=== PATIENT | female | born 1945 | race Caucasian/White ===

== ENCOUNTER 2017-10-21 07:02 | Day surgery (SDC) | payer MEDICARE ==
[2017-10-20 13:25] VITALS: BMI 30.7
[~2017-10-21 07:02] MED LIST: FLU VACC TS2017-18 (>65YR) 0.5 ML SYRINGE IM ONE
[2017-10-21 08:06] VITALS: BP 126/77; TEMP 98.2
--- NOTE | 2017-10-21 09:16 | RAD ---
LEFT HIP SERIES: Date: 10/21/17 INDICATION: Left hip pain. FINDINGS: There is a left hip prosthesis. Alignment is appropriate. No obvious hardware complication. Pelvic ph lebolith formation is seen. IMPRESSION: Postoperative left hip without evidence of hardware complication. POS: PEG
--- NOTE | 2017-10-21 09:19 | RAD ---
LUMBAR SPINE RADIOGRAPH SERIES 3 VIEWS LATERAL PROJECTIONS INCLUDING NEUTRAL AND FLEXION AND EXTENSION: CLINICAL HISTORY: Sacroiliitis, acute low back pain. FINDINGS: Neutral view of the lumbar spine reveals postoperative fusion spanning L3 through L5. No obvious ann dware complication on the provided lateral views. With flexion and extension positioning, there is n o obvious translational motion. Intradiskal space devices at L3-4 and L4-5 with osseous incorporatio n are present. There is a spinal stimulating device present, posteriorly. IMPRESSION: No obvious translational motion of the postoperative lumbar spine. No significant subluxation. POS: [facility]
--- NOTE | 2017-10-21 11:42 | RAD ---
LUMBAR SPINE MYELOGRAM INDICATION: Lumbar radiculopathy. PROCEDURE: After informed consent had been obtained, the patient was escorted to the interventional suite and pl aced on the procedural table. Progress Clerk imaging was performed. The patient was placed into a prone posi tion. Skin on the low back was then prepped and draped in the standard sterile fashion and topical a nd regional soft tissue anesthesia was achieved with 1% lidocaine and sodium bicarbonate. Right int erlaminar L5-S1 approach was selected, and a 22 gauge needle was uneventfully advanced into the theca l sac with clear color CSF. Subsequently, 10 cc Isovue was instilled into the thecal sac under real time fluoroscopy. Appropriate opacification of thecal sac demonstrated with imaging stored for [employer]. The needle was then removed from the patient. The patient tolerated the procedure well and was then transferred to CT to undergo subsequent myelogram. Reference separate report for full deta ils. EXPOSURE DATA: 0.1 minute intermittent fluoroscopy; 28 mGy*^m2. IMPRESSION: Technically successful lumbar myelogram as detailed above. POS: [facility]
[2017-10-21] MEDS ORDERED: Iopamidol-M 200 41% 20 ML VIAL ONE (17:14)
--- NOTE | 2017-10-22 07:22 | CT ---
LUMBAR SPINE CT WITH CONTRAST CT LUMBAR SPINE MYELOGRAM: CLINICAL HISTORY: Sacroiliitis, acute low back pain. FINDINGS: There is postoperative effusion spanning L3 through with bilateral pedicle screws at each level with bilateral vertical interconnecting rods. There is no evidence of hardware complication. Intradiskal space devices are present at L3-4 and L4-5 with associated osseous incorporation traversing portions of the makah disk spaces. No vertebral body height loss. There is slight retrolisthesis at L2 on 3. Interosseous hemangioma formation is seen at L1. There is a spinal stimulator device present fro m a posterior approach, partially visualized. Incidental note of a hyperdensity of the posterior aspect of the left kidney incompletely evaluated. There is mild vascular calcification. L5-S1: Broad-based disk bulge is present. There is no high-grade central canal stenosis. Mild narr owing of the right and minimal narrowing of the right and minimal narrowing of the left neural forame n. There is evidence of prior posterior decompression. L4-5: Left hemilaminectomy is present. There is no high-grade compromise of the central canal or ne ural foramina. L3-4: Evidence of prior posterior decompression. No significant compromise of the central canal or left neural foramen. There is mild narrowing of the right neural foramen of a disk-osteophyte. L2-3: Mild central canal stenosis due to disk-osteophyte complex. There is mild to moderate right a nd minimal left neural foraminal narrowing. L1-2: Mild effacement of the ventral thecal sac by disk-osteophyte complex. There is mild right for aminal narrowing with effacement of the anterior perineural fat by lateralized disk-osteophyte. Conus medullaris terminates at the L1 level. IMPRESSION: 1. Postoperative fusion spanning L3 through L5 without obvious hardware complication. Multiple post erior decompression of this region also present with a relatively patent postoperative thecal sac. 2. Degenerative changes, most pronounced at the level just cephalad to the site of multilevel fusion (L2-3), where broad-based disk-osteophyte complex as well as mild degree of retrolisthesis result in mild narrowing of the central canal. POS: [facility]
== END 2017-10-21 10:25 | disposition home or self-care (01) ==
LOC: RAD 07:02
PROVIDERS: ATTEND Neurological Surgery
DX: M54.16 Radiculopathy, lumbar region (principal); M54.5 Low back pain; M25.552 Pain in left hip; Z79.01 Long term (current) use of anticoagulants; Z79.899 Other long term (current) drug therapy; Z98.1 Arthrodesis status; Z96.642 Presence of left artificial hip joint; Z90.49 Acquired absence of other specified parts of digestive tract; Z98.890 Other specified postprocedural states
CPT/HCPCS: 62304; 72100; 72132

== ENCOUNTER 2017-11-25 10:08 | Outpatient (CLI) | payer MEDICARE ==
[2017-11-25 10:40] LABS: #Basophils 0.1 thou/uL (0.0-0.2); #Eosinphils 0.2 thou/uL (0.0-0.7); #Lymphocytes 2.4 thou/uL (1.20-3.40); #Monocytes 0.7 thou/uL (0.11-0.59); #Neutrophils 3.8 thou/uL (1.40-6.50); %Basophils 1.1 % (0.0-1.0); %Eosinophils 3.3 % (0.0-10.0); %Lymphocytes 33.6 % (21.0-51.0); %Monocytes 9.8 % (0.0-10.0); %Neutrophils 52.2 % (42.0-75.0); Hemoglobin 13.3 g/dL (12.0-16.0); Mean Corpuscular HGB CONC 33.1 g/dL (32.0-36.0); Mean Corpuscular Hemoglobin 30.1 pg (27.0-31.0); Mean Corpuscular Volume 90.9 fl (81.0-99.0); Mean Platelet Volume 6.4 fL (7.4-10.4); Platelet Count 366 thou/uL (130-400); RBC Distribution Width 12.1 % (11.5-14.5); White Blood Cell (WBC) Count 7.2 thou/uL (4.8-10.8)
--- NOTE | 2017-11-25 15:54 | NM ---
THREE PHASE NUCLEAR MEDICINE BONE SCAN 11/25/17 HISTORY: Patient has history of a left hip replacement having persistent hip pain. Examination is done as a three phase study, angiographic and blood pole imaging performed in the lola on of the pelvis and delayed static images of the entire skeletal system were obtained. Examination is performed using 30 millicuries of 99m technetium MDP. There is some increased uptake along the left side of the lower cervical spine and right sided mid ravindra mbar spine which appears to be arthritic in nature. The static images of the left hip prosthesis show typical photopenic defect. There is no signs that w ould suggest loosening. There is bilateral renal as well as bladder activity. IMPRESSION: No evidence of prosthesis loosening. No abnormal uptake in the region of the left hip prosthesis. POS: PEG
== END 2017-11-25 10:09 | disposition home or self-care (01) ==
LOC: NM 10:08
PROVIDERS: ATTEND Specialist
DX: T84.84XA Pain due to internal orthopedic prosthetic devices, implants and grafts, initial encounter (principal); Z96.642 Presence of left artificial hip joint
CPT/HCPCS: 78315; 85025; 85652; 86140; A9503; 36415